=== PATIENT | female | born 1945 | race Caucasian/White ===

== ENCOUNTER 2017-09-23 18:54 | Emergency (ER) | payer OTHER, BC ==
[2017-09-23 19:13] VITALS: TEMP 98; BMI 21.9
--- NOTE | 2017-09-23 19:55 | PDOC ---
Attending Attestation - Resident Resident Name: Singh Resendez - ED Attending Attestation I have performed the following: I have examined & evaluated the patient, The case was reviewed & discussed with the resident, I agree w/resident's findings & plan - HPI HPI: 09/23/17 20:12 Pt comes with uncontrolled BP. She has been missing doses of irbesartan on and off. Last night systolic was 200s and she took 50mg (2 pills) of her HCTZ. Pt States that the BP came down. Now she comes in with BP in the 200s again. - Physicial Exam PE: 09/23/17 20:15 Agree with resident exam. Pt's heart sounds normal, lungs are clear. Abd soft NT ND. 09/24/17 06:18 Pt is afebrile; O2 is 100% - Medical Decision Making 09/23/17 20:15 She receievd 2 SLNTG and the BP went down immediately to 133 systolic. Pt has a HR of 90s. We will give her 25mg metoprolol and check labs for end organ damage. EKG is normal CXR is clear Pt has no complaint of CP, only generalized weakness. SHe also has no PRADO at this time. Once results are back we will discuss with TYRONE Tejeda. 09/24/17 04:51 Dr. Tejeda is not component technician and not calling back. 09/24/17 06:17 Pt is feeling better and wants to go home. She understands that she can return with her . 09/24/17 06:18 Pt hydrated and she is feeling better Heart Score/ECG Review - Electrocardiogram EKG: Normal - Age Age: >/= 65 - Risk Factors Risk Factors Heart Score: Yes Hx Hypercholesterolemia, Yes Hx Hypertension Based on the list above the patient has:: >/=3 risk factors or Hx atherosclerotic disease - ECG Intrepretation Rhythm: Regular Rhythm - Quit[place] Quitaque: Normal - P and WA Prominent R with upright T in V1 (true posterior MA): No Delta Wave(s) Present: No WPW: No Comment:: 09/23/17 20:11 1 PVC on the EKG
[2017-09-23] MEDS ORDERED: metoPROLOL SUCCINATE 25 MG TAB.SR.24H (FP) PO ONE (20:01)
--- NOTE | 2017-09-23 20:01 | PDOC ---
History of Present Illness - General Chief Complaint: Blood Pressure Problem Stated Complaint: WEAKNESS Time Seen by Provider: 09/23/17 19:24 History Source: Patient Exam Limitations: No Limitations - History of Present Illness Initial Comments: 09/23/17 19:52 Patient is a 72F with history of HTN , HLD, and glaucoma here today complaining of weakness and high blood pressure. She states that she has been feeling generally weak for several days. She took her blood pressure yesterday at a chiropractor's office and it was 220/110. Denies fevers, chest pain, shortness of breath, nausea, vomiting. Patient states that she takes irbesartan normally for blood pressure. She states that she took 50mg of HCTZ today because her blood pressure was high. She states that she used to be on metoprolol, but that was discontinued several months ago. Denies headache, constipation, and pain with urination. Past History - Past Medical History Allergies/Adverse Reactions: Allergies Allergy/AdvReac Type Severity Reaction Status Date / Time No Known Allergies Allergy Verified 09/23/17 19:09 Home Medications: Ambulatory Orders Bimatoprost [Lumigan] 5 ml OP ASDIR #0 drops 02/27/13 Ezetimibe/Simvastatin [Vytorin 10-20 mg Tablet] 1 each PO DAILY #0 tablet Hydrochlorothiazide [Hctz -] 25 mg PO DAILY #30 tablet 02/27/13 Ranitidine [Zantac -] 150 mg PO BID #0 tablet 02/27/13 Timolol [Betimol] 10 ml OP ASDIR #0 drops 02/27/13 Valsartan [Diovan] 80 mg PO DAILY #0 tablet 02/27/13 Methylprednisolone [Medrol Dose Christiano] 4 mg PO ASDIR #21 tablet 03/07/13 Nitrofurantoin Monohyd/M-Cryst [Nitrofurantoin Oscoda-Mcr 100 mg] 100 mg PO BID # 10 capsule 09/23/17 COPD: No HTN: Yes Hypercholesterolemia: Yes Other medical history: glacoma - Suicide/Smoking/Psychosocial Hx Smoking Status: No Smoking History: Never smoked Have you smoked in the past 12 months: No Number of Cigarettes Smoked Daily: 0 Information on smoking cessation initiated: No Hx Alcohol Use: Yes Drug/Substance Use Hx: No Review of Systems - Review of Systems Comments:: 09/23/17 20:06 GENERAL/CONSTITUTIONAL: No fever. Positive for chills and weakness. HEAD, EYES, EARS, NOSE AND THROAT: No change in vision. No sore throat. CARDIOVASCULAR: No chest pain. Positive for shortness of breath RESPIRATORY: No cough, wheezing, or hemoptysis. GASTROINTESTINAL: No nausea, vomiting, diarrhea or constipation. GENITOURINARY: No dysuria, frequency, or change in urination. MUSCULOSKELETAL: No joint or muscle swelling or pain. No neck or back pain. SKIN: No rash NEUROLOGIC: No headache, vertigo, loss of consciousness, or change in strength/ sensation. ENDOCRINE: No increased thirst. No abnormal weight change HEMATOLOGIC/LYMPHATIC: No anemia, easy bleeding, or history of blood clots. ALLERGIC/IMMUNOLOGIC: No hives or skin allergy. *Physical Exam - Vital Signs Last Vital Signs Temp Pulse Resp BP Pulse Ox 98 F 72 18 216/81 100 09/23/17 19:09 09/23/17 19:09 09/23/17 19:09 09/23/17 19:09 09/23/17 19:09 - Physical Exam Comments: 09/23/17 20:07 GENERAL: Awake, alert, and fully oriented, in no acute distress HEAD: No signs of trauma, normocephalic, atraumatic EYES: PERRLA, EOMI, sclera anicteric, conjunctiva clear ENT: Auricles normal inspection, hearing grossly normal, nares patent, oropharynx clear without exudates. Dry mucosa NECK: Normal ROM, supple, no lymphadenopathy, JVD, or masses LUNGS: No distress, speaks full sentences, clear to auscultation bilaterally HEART: Regular rate and rhythm, normal S1 and S2, no murmurs, rubs or gallops, peripheral pulses normal and equal bilaterally. ABDOMEN: Soft, nontender, normoactive bowel sounds. No guarding, no rebound. No masses EXTREMITIES: Normal inspection, Normal range of motion, no edema. No clubbing or cyanosis. NEUROLOGICAL: Cranial nerves II through XII grossly intact. Normal speech, no focal sensorimotor deficits SKIN: Warm, Dry, normal turgor, no rashes or lesions noted. ED Treatment Course - LABORATORY CBC & Chemistry Diagram: 09/23/17 18:55 09/23/17 18:55 - RADIOLOGY Radiology Studies Ordered: Category Date Time Status CHEST X-RAY PORTABLE* [RAD] Stat Radiology 09/23/17 19:38 Taken Medical Decision Making - Medical Decision Making 09/23/17 20:07 Patient is 72F with history of HTN, HLD, and glaucoma here today with weakness and hypertension. Vital signs notable for systolic BP>200. Will give 25 metoprolol. Suspect medication non-compliance. Will perform labs and EKG to look for end organ damage. Will reassess. EKG shows normal sinus rhythm with rate of 69. No st elevations/depression. No significant t-wave abnormalities. One PVC. CXR shows no acute cardiopulmonary process. 09/23/17 21:31 Laboratory Tests 09/23/17 09/23/17 09/23/17 18:55 18:55 18:55 WBC 8.4 Hgb 13.6 Hct 38.3 Plt Count 259 INR 1.01 Sodium 132 L Potassium 3.4 L Chloride 97 L Creatinine 0.7 Random Glucose 130 H Magnesium 1.6 L Ur Leukocyte Esterase Urine WBC (Auto) 09/23/17 20:00 WBC Hgb Hct Plt Count INR Sodium Potassium Chloride Creatinine Random Glucose Magnesium Ur Leukocyte Esterase Trace Urine WBC (Auto) 15 CBC normal, CMP reassuring. Given 1L fluids and taking PO. Repleting mag and K. UA shows UTI. No CVA tenderness. Patient reports feeling better, but still weaker than normal. Will treat with nitrofuratoin. 09/23/17 21:53 BP 165/74, will discharge after completion of magnesium. *DC/Admit/Observation/Transfer Diagnosis at time of Disposition: UTI (urinary tract infection) - Discharge Dispostion Disposition: HOME Condition at time of disposition: Good - Prescriptions Prescriptions: Nitrofurantoin Monohyd/M-Cryst [Nitrofurantoin Oscoda-Mcr 100 mg] 100 mg PO BID # 10 capsule - Referrals Referrals: Abdon Tejeda MD [Primary Care Provider] - - Patient Instructions Printed Discharge Instructions: DI for High Blood Pressure, DI for Urinary Tract Infection (UTI) Additional Instructions: You were seen today in the ED and found to have high blood pressure and a UTI. You were prescribed an antibiotic, please take your next dose tomorrow morning and complete the prescription even if you feel better. Please return if you have any new, worsening or concerning symptoms. - Post Discharge Activity
[2017-09-23 20:02] LABS: BASO % 0.7 % (0-2.0); EOS % 0.3 % (0-4.5); HEMATOCRIT 38.3 % (32.4-45.2); HEMOGLOBIN 13.6 GM/dL (10.7-15.3); LYMPH % 25.2 % (8-40); MCH 33.7 pg (25.7-33.7); MCHC 35.6 g/dl (32.0-36.0); MEAN CELL VOLUME 94.9 fl (80-96); MEAN PLT VOLUME 7.3 fl (7.5-11.1); MONO % 6.8 % (3.8-10.2); PLATELET COUNT 259 K/MM3 (134-434); RBC 4.04 M/mm3 (3.60-5.2); WHITE BLOOD COUNT 8.4 K/mm3 (4.0-10.0)
[2017-09-23] MEDS ORDERED: METOPROLOL TARTRATE 25 MG TABLET (FP) ONE (20:02)
[2017-09-23] MEDS ORDERED: NITROGLYCERIN SUBLINGUAL 1/150 0.4 MG TAB SL ONE (20:10)
[2017-09-23 20:20] LABS: INR 1.01 (0.82-1.09); PROTHROMBIN TIME (PATIENT) 11.4 SEC (9.7-13.0)
[2017-09-23 20:26] LABS: ANION GAP 12 (8-16); BLOOD UREA NITROGEN 13 mg/dL (7-18); CALCIUM 8.6 mg/dL (8.5-10.1); CHLORIDE 97 mmol/L (98-107); CO2 23 mmol/L (21-32); CREATININE 0.7 mg/dL (0.55-1.02); GLUCOSE,RANDOM 130 mg/dL (74-106); MAGNESIUM 1.6 mg/dL (1.8-2.4); POTASSIUM 3.4 mmol/L (3.5-5.1); SGOT/AST 15 U/L (15-37); SGPT/ALT 14 U/L (12-78); SODIUM 132 mmol/L (136-145)
[2017-09-23 20:27] LABS: URINE APPEARANCE CLEAR; URINE BILIRUBIN NEGATIVE (<2.0 mg/dL); URINE COLOR STRAW; URINE GLUCOSE (UA) NEGATIVE (NEGATIVE); URINE KETONE TRACE (NEGATIVE); URINE LEUK ESTERASE TRACE (NEGATIVE); URINE NITRITE NEGATIVE (NEGATIVE); URINE PROTEIN NEGATIVE (NEGATIVE); URINE UROBILINOGEN NEGATIVE mg/dL (0.2-1.0)
[2017-09-23 20:30] LABS: ALK PHOS 58 U/L (45-117); BILIRUBIN,TOTAL 0.5 mg/dL (0.2-1.0)
[2017-09-23] MEDS ORDERED: POTASSIUM CHLORIDE TABS 20 MEQ TABLET.ER (FP) PO ONE ×2 (21:04→21:18)
[2017-09-23] MEDS ORDERED: MAGNESIUM SULF 50% (8.12 MEQ/2 ML-1 GM VIAL) IVPB ONE (21:04)
[2017-09-23] MEDS ORDERED: MAGNESIUM SULF 50% (8.12 MEQ/2 ML-1 GM VIAL) ONE (21:17)
[2017-09-23 21:20] LABS: EPI CELLS RARE /HPF (FEW)
[2017-09-23] MEDS ORDERED: NITROFURANTOIN MACROCRYSTAL 50 MG CAPSULE (FP) PO SCH (21:45)
[2017-09-23] MEDS ORDERED: NITROFURANTOIN MACROCRYSTAL 50 MG CAPSULE (FP) ONE (21:49)
[2017-09-23 21:55] VITALS: BP 165/74; PULSE 55
--- NOTE | 2017-09-24 09:21 | EKG ---
Test Reason : Blood Pressure : / mmHG Vent. Rate : 069 BPM Atrial Rate : 069 BPM P-R Int : 128 ms QRS Dur : 078 ms QT Int : 394 ms P-R-T Axes : 051 008 041 degrees QTc Int : 422 ms SINUS RHYTHM WITH OCCASIONAL PREMATURE VENTRICULAR COMPLEXES MINIMAL VOLTAGE CRITERIA FOR LVH, MAY BE NORMAL VARIANT BORDERLINE ECG WHEN COMPARED WITH ECG OF 07-MAR-2013 00:12, PREMATURE VENTRICULAR COMPLEXES ARE NOW PRESENT Confirmed by EVELIO MARTIN, DOROTHY ([id number]) on 09/24/2017 9:21:06 AM Referred By: Confirmed By:DOROTHY FRASER MD
== END 2017-09-23 22:34 | disposition home or self-care (01) ==
LOC: JER 18:54
PROC: 3E033GC Introduction of Other Therapeutic Substance into Peripheral Vein, Percutaneous Approach (ICD-10-PCS; principal; 2017-09-23)
DX: N39.0 Urinary tract infection, site not specified (principal); I10 Essential (primary) hypertension; E87.6 Hypokalemia; E83.42 Hypomagnesemia
CPT/HCPCS: 36415; 71045-TC-FY; 80053; 81003; 81015; 82550; 83735; 84484; 85025; 85610; 87086; 93005; 93010; 96374; 99285-25

== ENCOUNTER 2017-09-27 11:41 | Observation (INO) | payer OTHER, BC ==
[2017-09-27 12:01] VITALS: BMI 21.9
--- NOTE | 2017-09-27 12:13 | PDOC ---
History of Present Illness - General Chief Complaint: Weakness Stated Complaint: LETHARGIC, DIZZINESS Time Seen by Provider: 09/27/17 12:09 - History of Present Illness Initial Comments: patient is a 72F with history of HTN , HLD, and glaucoma, who presents to the emergency department complaining of chronic fatigue, markedly worse over the last month. Pt states that she began experiencing chronic fatigue after her last glaucoma surgery in 2016. Pt states that she recently travel to [place] in Mid-August and noted her chronic fatigue was markedly worse after the trip. Pt states she feels depleted throughout the day, endorses frequent chills and occasional palpitations in the last few days. Pt denies any change in PO intake or loss of appetite. States she has lost 16lbs over the last 6 years. Pt most recent colonoscopy was May of this year. Fam hx significant for mother with Graves Dz. No recent sick contacts, bug bites, rashes. Pt recently in ED on for similar symptoms with BP in 200s systolic, treated with metoprolol 25mg and discharged after resolution of symptoms. Patient denies chest pain, shortness of breath, headache or dizziness. Denies fever, nausea, vomiting, diarrhea and constipation. Denies dysuria, frequency, urgency and hematuria. Allergies: None Past surgical history: BL Glaucoma surgery Social History: Denies smoking, drug use. Glass of wine with dinner PMD: Dr. Danis Tejeda 09/27/17 12:10 Past History - Past Medical History Allergies/Adverse Reactions: Allergies Allergy/AdvReac Type Severity Reaction Status Date / Time LEE Inhibitors Allergy Verified 09/27/17 12:01 Home Medications: Ambulatory Orders Hydrochlorothiazide [Hctz -] 25 mg PO DAILY PRN 09/27/17 Irbesartan [Avapro] 300 mg PO DAILY 09/27/17 COPD: No HTN: Yes Hypercholesterolemia: Yes - Suicide/Smoking/Psychosocial Hx Smoking Status: No Smoking History: Never smoked Have you smoked in the past 12 months: No Number of Cigarettes Smoked Daily: 0 Hx Alcohol Use: Yes (one glass of wine a day) Drug/Substance Use Hx: No Substance Use Type: Alcohol Review of Systems - Review of Systems Comments:: GENERAL/CONSTITUTIONAL: Persistent fatigue, chills. No fever. HEAD, EYES, EARS, NOSE AND THROAT: No change in vision. No ear pain or discharge. No sore throat. CARDIOVASCULAR: Occasional palpitations. No chest pain or shortness of breath RESPIRATORY: No cough, wheezing, or hemoptysis. GASTROINTESTINAL: No nausea, vomiting, diarrhea or constipation. GENITOURINARY: No dysuria, frequency, or change in urination. MUSCULOSKELETAL: No joint or muscle swelling or pain. No neck or back pain. SKIN: No rash NEUROLOGIC: No headache, vertigo, loss of consciousness, or change in strength/ sensation. ENDOCRINE: No increased thirst. No abnormal weight change HEMATOLOGIC/LYMPHATIC: No anemia, easy bleeding, or history of blood clots. ALLERGIC/IMMUNOLOGIC: No hives or skin allergy. 09/27/17 12:10 *Physical Exam - Vital Signs Last Vital Signs Temp Pulse Resp BP Pulse Ox 97.6 F 67 16 204/89 99 09/27/17 11:56 09/27/17 11:56 09/27/17 11:56 09/27/17 11:56 09/27/17 11:56 - Physical Exam Comments: GENERAL: Elderly woman, Awake, alert, and fully oriented, in no acute distress HEAD: No signs of trauma, normocephalic, atraumatic EYES: PERRLA, EOMI, sclera anicteric, conjunctiva clear ENT: Auricles normal inspection, hearing grossly normal, nares patent, oropharynx clear without exudates. Moist mucosa NECK: Normal ROM, supple, no lymphadenopathy, JVD, or masses LUNGS: No distress, speaks full sentences, clear to auscultation bilaterally HEART: Regular rate and rhythm, normal S1 and S2, no murmurs, rubs or gallops, peripheral pulses normal and equal bilaterally. ABDOMEN: R trace renal bruit appreciable. Soft, nontender, normoactive bowel sounds. No guarding, no rebound. No masses EXTREMITIES : Trace pedal edema BL. Normal inspection, Normal range of motion. No clubbing or cyanosis. NEUROLOGICAL: Cranial nerves II through XII grossly intact. Normal speech, normal gait, no focal sensorimotor deficits SKIN: Warm, Dry, normal turgor, no rashes or lesions noted 09/27/17 12:10 ED Treatment Course - LABORATORY CBC & Chemistry Diagram: 09/27/17 13:44 09/27/17 13:44 Medical Decision Making - Medical Decision Making patient is a 72F with history of HTN , HLD, and glaucoma, who presents to the emergency department complaining of chronic fatigue, markedly worse over the last month. Vitals notable for BP 200s/80s systolic. Ddx included malignant hypertension, anemia, hypothyroidism, adrenal insufficiency, metabolic derangement, neoplasm, infection. Will send CBC, CMP, TSH, ESR, folate, vitamin b12, CXR, EKG, UA. Consider renal U/S for evaluation of hx of JANUSZ. 09/27/17 13:11 Pt complaining of SOB. Placed on O2, Pulse Ox ordered. Satting 100% with HR 70. Cardiac/pulm exam unremarkable. Pt seen by IMPORT/EXPORT CLERK of Dr. Bazzi. Will be admitted for Dr. Tejeda. 09/27/17 14:44 09/27/17 15:[address] Bazzi. Spoke with IMPORT/EXPORT CLERK, confirmed admission. *DC/Admit/Observation/Transfer Diagnosis at time of Disposition: Hypertension, Chronic fatigue - Discharge Dispostion Condition at time of disposition: Guarded Decision to Admit order: Yes - Referrals Referrals: Abdon Tejeda MD [Primary Care Provider] - 1 week - Patient Instructions - Post Discharge Activity
--- NOTE | 2017-09-27 13:22 | PDOC ---
Attending Attestation - HPI HPI: 09/27/17 14:10 The patient is a 72 year old female with a significant past medical history of hypertension, glaucoma, and hyperlipidemia who presents to the emergency department for evaluation of generalized weakness. The patient reports a 5 day history of increasing fatigue. The patient reports she has noticed increasing weakness since her glaucoma surgery in 2016 and after her recent trip to [place] in August. She reports associated symptoms of chills and palpitations. Of note, the patient was seen in emergency department on 09/23 for similar symptoms. The patient reports she was prompted by her PCP to visit the emergency department for full work up of hypertension and chronic fatigue. The patient denies chest pain, shortness of breath, headache, and dizziness. Denies fevers, nausea, vomiting, diarrhea, and constipation. Denies dysuria, frequency, urgency, and hematuria. Denies loss of appetite and sick contact. Allergies: LEE Inhibitors Family History: Mother: Graves disease. Past surgical history: Glaucoma surgery (02/2017). Colonoscopy (05/2017) Social history: Reported alcohol consumption (Glass of wine with dinner) No reported cigarette or drug use. PCP: Dr. Danis Tejeda ([phone]) - Physicial Exam PE: Vitals: Triage Vital signs reviewed General Appearance: (+)Weak. Head: Atraumatic, normocephalic Eyes: Pupils equal reactive round, extraocular movement intact Nose: Nares patent bilaterally Neck: Supple;No Nuchal rigidity Chest Wall: Nontender Cardiac: Regular rate and rhythm, no murmurs, no rubs, no gallops, Lungs: Clear to auscultation bilateral, good air movement bilaterally, Abdomen: Soft, nondistended, normal bowel sounds, nontender to palpation Rectal: Exam deferred Extremities: Full range of motion to all extremities, no cyanosis, clubbing, or edema Skin: Warm and dry, no rashes or lesions, no petechiae Neuro: Cranial Nerves 2-12 grossly c intact, Strength intact to all extremities , Sensation intact to all extremities Psych: normal mood, normal affect - Medical Decision Making The patient is a 72 year old female with a significant past medical history of hypertension, glaucoma, and hyperlipidemia who presents to the emergency department for evaluation of generalized weakness. Plan: Labs Chest x-ray ECG Renal artery ultrasound TSH folate Vitamin b-12 ESR <Geno Becerra - Last Filed: 09/27/17 14:10> - Resident Resident Name: Bay Johnstonua - ED Attending Attestation I have performed the following: I have examined & evaluated the patient, The case was reviewed & discussed with the resident, I agree w/resident's findings & plan, Exceptions are as noted - Medical Decision Making Patient sent in for admission for evaluation of uncontrolled hypertension and fatigue. Medical workup initiated. Hydralazine ordered for blood pressure. Medicine team to provide remainder of care <Nuno Hinton - Last Filed: 09/27/17 17:31> Attestations - Attestations Documentation prepared by Geno Becerra, acting as medical social worker for Nuno Hinton MD. <Geno Becerra - Last Filed: 09/27/17 14:10>
[2017-09-27 13:55] LABS: BASO % 0.5 % (0-2.0); EOS % 0.7 % (0-4.5); HEMOGLOBIN 14.6 GM/dL (10.7-15.3); LYMPH % 26.9 % (8-40); MCH 32.6 pg (25.7-33.7); MCHC 34.6 g/dl (32.0-36.0); MEAN CELL VOLUME 94.1 fl (80-96); MEAN PLT VOLUME 7.5 fl (7.5-11.1); MONO % 6.2 % (3.8-10.2); NEUT % 65.7 % (42.8-82.8); PLATELET COUNT 301 K/MM3 (134-434); RBC 4.47 M/mm3 (3.60-5.2); WHITE BLOOD COUNT 8.3 K/mm3 (4.0-10.0)
[2017-09-27 14:08] LABS: URINE APPEARANCE CLEAR; URINE BILIRUBIN NEGATIVE (<2.0 mg/dL); URINE COLOR STRAW; URINE GLUCOSE (UA) NEGATIVE (NEGATIVE); URINE KETONE NEGATIVE (NEGATIVE); URINE NITRITE NEGATIVE (NEGATIVE); URINE PROTEIN NEGATIVE (NEGATIVE); URINE UROBILINOGEN NEGATIVE mg/dL (0.2-1.0)
[2017-09-27 14:14] LABS: URINE LEUK ESTERASE 1+ (NEGATIVE)
[2017-09-27 14:16] LABS: EPI CELLS RARE /HPF (FEW)
[2017-09-27 14:21] LABS: ANION GAP 9 (8-16); BILIRUBIN,TOTAL 0.5 mg/dL (0.2-1.0); BLOOD UREA NITROGEN 13 mg/dL (7-18); CALCIUM 9.2 mg/dL (8.5-10.1); CHLORIDE 98 mmol/L (98-107); CO2 25 mmol/L (21-32); CREATININE 0.7 mg/dL (0.55-1.02); GLUCOSE,RANDOM 88 mg/dL (74-106); POTASSIUM 4.2 mmol/L (3.5-5.1); SGOT/AST 12 U/L (15-37); SGPT/ALT 11 U/L (12-78); SODIUM 132 mmol/L (136-145); TOT PROT 7.2 g/dl (6.4-8.2)
[2017-09-27 14:30] LABS: ALK PHOS 70 U/L (45-117)
[2017-09-27] MEDS ORDERED: hydrALAZINE HCL 20 MG/ML VIAL IM ONE (14:40)
[2017-09-27] MEDS ORDERED: ALPRAZolam 0.25 MG TABLET PO ONE (14:41)
[2017-09-27] MEDS ORDERED: hydrALAZINE HCL 20 MG/ML VIAL IVPUSH ONE (14:43)
[2017-09-27] MEDS ORDERED: hydrALAZINE HCL 20 MG/ML VIAL ONE (14:45)
[2017-09-27] MEDS ORDERED: ALPRAZolam 0.25 MG TABLET ONE (14:45)
[2017-09-27] MEDS ORDERED: SODIUM CHLORIDE 1,000 ML IV SCH (15:30)
--- NOTE | 2017-09-27 15:38 | HP ---
Admitting History and Physical - Primary Care Physician PCP: Abdon Tejeda - Admission Chief Complaint: fatigue History of Present Illness: is a 72 year old female with pmh of HTN, glaucoma, hld, anxiety/ panic attacks who presents with worsening weakness/fatigue over the last 5 days. She was seen in ED on Tuesday for similar symptoms, sent home on po antibiotics. Pt reports no relief since Tuesday and feels as she is feeling worse. She reports sweats/chills and feeling hot/cold. She also reports hyperpigmentation spots on her legs. BP when checked at home was 200s/100s. She reports episodes of fatigue since 06/2016 but never as bad as right now. She reports due to fatigue, she hasn't been able to ambulate and perform ADLs at home like before. She was at her PCP office today and was sent over for further evaluation. She reports she has been eating and drinking adequately at home. No changes in sleep, feels she is actually sleeping more now. Weight loss of 15 lbs over the last 5 years. She denies any chest pain, n/v/d, rash, fever, unilateral weakness, changes in speech/swallowing, recent travel, sick contacts. Upon my interaction in ED, she reports acute sob, O2sat 100%, 2L O2 Via NC placed History Source: Patient, Significant Other Limitations to Obtaining History: No Limitations - Past Medical History Cardiovascular: Yes: HTN, Hyperlipdemia Psych: Yes: Anxiety, Panic - Past Surgical History Additional Past Surgical History: Right Lumpectomy- over 30 years ago Glaucoma surgery-02/2017 Colonoscopy- 05/2017 - Smoking History Smoking history: Never smoked Have you smoked in the past 12 months: No Aproximately how many cigarettes per day: 0 - Alcohol/Substance Use Hx Alcohol Use: Yes (one glass of wine a day) History of Substance Use: reports: None - Social History Usual Living Arrangement: Yes: With Spouse History of Recent Travel: No Home Medications - Allergies Allergies/Adverse Reactions: Allergies Allergy/AdvReac Type Severity Reaction Status Date / Time LEE Inhibitors Allergy Severe Difficulty Verified 09/27/17 15:41 Breathing amlodipine Allergy Verified 09/27/17 15:41 - Home Medications Home Medications: Ambulatory Orders Hydrochlorothiazide [Hctz -] 25 mg PO DAILY PRN 09/27/17 Irbesartan [Avapro] 300 mg PO DAILY 09/27/17 Family Disease History - Family Disease History Family Disease History: Heart Disease: Father (stroke, chf), Other: Mother ( graves disease ) Review of Systems Findings/Remarks: as per hpi Physical Examination Vital Signs: Vital Signs Temperature 97.6 F 09/27/17 11:56 Pulse Rate 55 L 09/27/17 15:14 Respiratory Rate 22 09/27/17 14:42 Blood Pressure 167/64 09/27/17 15:14 O2 Sat by Pulse Oximetry (%) 100 09/27/17 14:42 Constitutional: Yes: Anxious Eyes: Yes: WNL HENT: Yes: WNL Neck: Yes: WNL Cardiovascular: Yes: WNL, Regular Rate and Rhythm. No: Bruit, Murmur Respiratory: Yes: WNL, Regular, CTA Bilaterally, On Nasal O2 (improving), SOB. No: Accessory Muscle Use, Rales, Tachypnea, Wheezes Gastrointestinal: Yes: WNL, Normal Bowel Sounds, Soft. No: Distention, Tenderness Renal/: Yes: WNL Extremities: Yes: Other (diffuse macular hyperpigmentation of LE's, b/l bruit femoral) Edema: No Neurological: Yes: Alert, Oriented Psychiatric: Yes: WNL, Alert, Oriented Labs: CBC, BMP 09/27/17 13:44 09/27/17 13:44 Imaging - Results Chest X-ray: Pending Cat Scan: Pending (Head CT) Ultrasound: Pending (Renal US) Problem List - Problems (1) Acute hyponatremia Assessment/Plan: Mild, +fatigue hold hctz NS 42mL/hr ordered regular diet monitor bmp Code(s): E87.1 - HYPO-OSMOLALITY AND HYPONATREMIA (2) Hypertensive urgency Assessment/Plan: BP>200s/100s, +fatigue, b/l fem bruit auscultated upon palp, denies other symptoms anaphylactic reaction to LEE-I allergy/intolerance to Amlodipine- pt unable to report what happened improved with iv hydralazine renal ultrasound ordered head CT ordered- r/o ich/aute pathology continue irbesartan hydralazine 10mg po bid added will monitor Code(s): I16.0 - HYPERTENSIVE URGENCY (3) Hypertension Assessment/Plan: plan as above Code(s): I10 - ESSENTIAL (PRIMARY) HYPERTENSION (4) Fatigue Assessment/Plan: worsening fatigue x 5 days, +shivering hyperpigmentation of LE's, although would be hypotensive in adrenal insufficiency, considering hyperpig, will ordered AM cortisol level labs unremarkable, tsh wnl, esr wnl hepatitis panel ordered chest xray pending PT ordered Code(s): R53.83 - OTHER FATIGUE (5) Anxiety Assessment/Plan: stable, history of panic attacks xanax prn Code(s): F41.9 - ANXIETY DISORDER, UNSPECIFIED (6) Femoral bruit Assessment/Plan: b/l femoral bruits auscultated renal US ordered Code(s): R09.89 - OTH SYMPTOMS AND SIGNS INVOLVING THE CIRC AND RESP SYSTEMS (7) HLD (hyperlipidemia) Assessment/Plan: controlled off meds Code(s): E78.5 - HYPERLIPIDEMIA, UNSPECIFIED (8) History of glaucoma Assessment/Plan: s/p glaucoma surgery 06/2016 Code(s): Z86.69 - PERSONAL HISTORY OF DIS OF THE NERVOUS SYS AND SENSE ORGANS
--- NOTE | 2017-09-27 17:07 | EKG ---
Test Reason : Blood Pressure : / mmHG Vent. Rate : 062 BPM Atrial Rate : 062 BPM P-R Int : 162 ms QRS Dur : 084 ms QT Int : 410 ms P-R-T Axes : 055 -10 035 degrees QTc Int : 416 ms NORMAL SINUS RHYTHM MODERATE VOLTAGE CRITERIA FOR LVH, MAY BE NORMAL VARIANT BORDERLINE ECG Confirmed by MD JESUSITA, LUPE ([id number]) on 09/27/2017 5:07:12 PM Referred By: Confirmed By:LUPE MC MD
[2017-09-27] MEDS: hydrALAZINE HCL 10 MG TABLET PO SCH (21:26)
[2017-09-27] MEDS: ALPRAZolam 0.25 MG TABLET PO PRN (21:27)
[2017-09-28 07:33] LABS: BASO % 0.9 % (0-2.0); EOS % 1.2 % (0-4.5); HEMATOCRIT 37.6 % (32.4-45.2); HEMOGLOBIN 13.3 GM/dL (10.7-15.3); LYMPH % 32.4 % (8-40); MCH 33.7 pg (25.7-33.7); MCHC 35.2 g/dl (32.0-36.0); MEAN CELL VOLUME 95.7 fl (80-96); MEAN PLT VOLUME 7.5 fl (7.5-11.1); MONO % 6.7 % (3.8-10.2); NEUT % 58.8 % (42.8-82.8); PLATELET COUNT 268 K/MM3 (134-434); RBC 3.93 M/mm3 (3.60-5.2); RDW 12.9 % (11.6-15.6); WHITE BLOOD COUNT 6.2 K/mm3 (4.0-10.0)
[2017-09-28 07:48] LABS: CHLORIDE 107 mmol/L (98-107); POTASSIUM 4.4 mmol/L (3.5-5.1); SODIUM 139 mmol/L (136-145)
[2017-09-28 07:53] LABS: ANION GAP 7 (8-16); BLOOD UREA NITROGEN 15 mg/dL (7-18); CALCIUM 8.5 mg/dL (8.5-10.1); CO2 25 mmol/L (21-32); CREATININE 0.7 mg/dL (0.55-1.02); GLUCOSE,RANDOM 86 mg/dL (74-106); MAGNESIUM 2.1 mg/dL (1.8-2.4); PHOSPHOROUS 3.7 mg/dL (2.5-4.9)
--- NOTE | 2017-09-28 10:17 | PN ---
Progress Note, Physician Chief Complaint: Pt lying in bed in no acute distress. she reports she felt more weaker and shivers just now today after she got up before. Denies chest pain, sob, n/v/d, dizziness, lightheadedness. - Current Medication List Current Medications: Active Medications Alprazolam (Xanax -) 0.25 mg PO Q6H PRN PRN Reason: ANXIETY Last Admin: 09/27/17 21:27 Dose: 0.25 mg Hydralazine HCl (Apresoline -) 10 mg PO BID DELMER Last Admin: 09/27/17 21:26 Dose: 10 mg Losartan Potassium (Cozaar -) 100 mg PO DAILY [facility] - Objective Vital Signs: Vital Signs Temperature 97.5 F L 09/28/17 06:14 Pulse Rate 68 09/28/17 06:14 Respiratory Rate 18 09/28/17 06:14 Blood Pressure 149/76 09/28/17 06:14 O2 Sat by Pulse Oximetry (%) 98 09/28/17 00:10 Constitutional: Yes: No Distress, Anxious, Thin Cardiovascular: Yes: WNL, Regular Rate and Rhythm. No: Gallop, Murmur Respiratory: Yes: WNL, Regular, CTA Bilaterally. No: Accessory Muscle Use, SOB , Tachypnea, Wheezes Gastrointestinal: Yes: Normal Bowel Sounds, Soft, Other (abd bruit). No: Distention, Tenderness Genitourinary: Yes: WNL Extremities: Yes: Other (b/l femoral bruit) Edema: No Neurological: Yes: WNL, Alert, Oriented Psychiatric: Yes: WNL, Alert, Oriented Labs: CBC, BMP 09/28/17 06:00 09/28/17 06:00 - ....Imaging Chest X-ray: Report Reviewed Cat Scan: Report Reviewed Ultrasound: Report Reviewed Problem List - Problems (1) Acute hyponatremia Code(s): E87.1 - HYPO-OSMOLALITY AND HYPONATREMIA (2) Hypertensive urgency Code(s): I16.0 - HYPERTENSIVE URGENCY (3) Hypertension Code(s): I10 - ESSENTIAL (PRIMARY) HYPERTENSION (4) Fatigue Code(s): R53.83 - OTHER FATIGUE (5) Anxiety Code(s): F41.9 - ANXIETY DISORDER, UNSPECIFIED (6) Femoral bruit Code(s): R09.89 - OTH SYMPTOMS AND SIGNS INVOLVING THE CIRC AND RESP SYSTEMS (7) HLD (hyperlipidemia) Code(s): E78.5 - HYPERLIPIDEMIA, UNSPECIFIED (8) History of glaucoma Code(s): Z86.69 - PERSONAL HISTORY OF DIS OF THE NERVOUS SYS AND SENSE ORGANS Assessment/Plan (1) Acute hyponatremia Assessment/Plan: resolved ivf d/c'd Code(s): E87.1 - HYPO-OSMOLALITY AND HYPONATREMIA (2) Hypertensive urgency Assessment/Plan: improved, BP 140s/70s renal us/head ct unremarkable renal artery duplex ordered to r/o stenosis continue irbesartan hydralazine 10mg po bid cardiology consult appreciated orthostatics ordered will monitor Code(s): I16.0 - HYPERTENSIVE URGENCY (3) Hypertension Assessment/Plan: plan as above Code(s): I10 - ESSENTIAL (PRIMARY) HYPERTENSION (4) Fatigue Assessment/Plan: unchanged, episode of worsening generalized weakness this am labs unremarkable, tsh wnl, esr wnl cardiac echo pending am cortisol pending hepatitis panel pending PT pending Code(s): R53.83 - OTHER FATIGUE (5) Anxiety Assessment/Plan: stable, history of panic attacks xanax prn Code(s): F41.9 - ANXIETY DISORDER, UNSPECIFIED (6) Femoral bruit Assessment/Plan: b/l femoral bruits auscultated duplex to r/o renal artery stenosis Code(s): R09.89 - OTH SYMPTOMS AND SIGNS INVOLVING THE CIRC AND RESP SYSTEMS (7) HLD (hyperlipidemia) Assessment/Plan: controlled off meds Code(s): E78.5 - HYPERLIPIDEMIA, UNSPECIFIED (8) History of glaucoma Assessment/Plan: s/p glaucoma surgery 06/2016 Code(s): Z86.69 - PERSONAL HISTORY OF DIS OF THE NERVOUS SYS AND SENSE ORGANS
[2017-09-28] MEDS: LOSARTAN POTASSIUM 50 MG TABLET (FP) PO SCH (10:28)
[2017-09-28] MEDS: hydrALAZINE HCL 10 MG TABLET PO SCH (10:28)
[2017-09-28] MEDS ORDERED: PT OWN MED DRAWER 7, Y5N ONE (10:50)
--- NOTE | 2017-09-28 10:51 | CON.CARD ---
Cardiology Consult (text) - Consultation Consultation Note: cc: fatigue hpi: 72 f hx htn,hld, here with general weakness/fatigue. For months pt has been having these sxs. Last few days has been worse so came to er. No cp, sob , palps, dizzy, loc, pnd, orthopnea, le edema. No hx hrt dz. pmh: per hpi psh: eye surgery social: no tob fam: no premature cad, scd ros: per hpi; no nvd, fever, gib, hematuria, dysuria, vision changes meds: Home Medications Medication Instructions Recorded Hydrochlorothiazide [Hctz -] 25 mg PO DAILY PRN 09/27/17 Irbesartan [Avapro] 300 mg PO DAILY 09/27/17 pe: Vital Signs Period Temp Pulse Resp BP Sys/Hampton Pulse Ox Last 24 Hr 96.9 F-98.8 F 55-87 16-22 120-204/64-96 98-100 nad no jvd rrr s1s2 no mrg cta bl nl eff aaox3 no le e/c/c abd nt nd pos bs no jaundice diaphoresis pos dp pt Laboratory Last Values WBC 6.2 K/mm3 (4.0-10.0) 09/28/17 06:00 RBC 3.93 M/mm3 (3.60-5.2) 09/28/17 06:00 Hgb 13.3 GM/dL (10.7-15.3) 09/28/17 06:00 Hct 37.6 % (32.4-45.2) 09/28/17 06:00 MCV 95.7 fl (80-96) 09/28/17 06:00 MCH 33.7 pg (25.7-33.7) 09/28/17 06:00 MCHC 35.2 g/dl (32.0-36.0) 09/28/17 06:00 RDW 12.9 % (11.6-15.6) 09/28/17 06:00 Plt Count 268 K/MM3 (134-434) 09/28/17 06:00 MPV 7.5 fl (7.5-11.1) 09/28/17 06:00 Neutrophils % 58.8 % (42.8-82.8) 09/28/17 06:00 Lymphocytes % 32.4 % (8-40) D 09/28/17 06:00 Monocytes % 6.7 % (3.8-10.2) 09/28/17 06:00 Eosinophils % 1.2 % (0-4.5) 09/28/17 06:00 Basophils % 0.9 % (0-2.0) 09/28/17 06:00 ESR 7 mm/hr (0-30) 09/27/17 13:44 Sodium 139 mmol/L (136-145) 09/28/17 06:00 Potassium 4.4 mmol/L (3.5-5.1) 09/28/17 06:00 Chloride 107 mmol/L (98-107) 09/28/17 06:00 Carbon Dioxide 25 mmol/L (21-32) 09/28/17 06:00 Anion Gap 7 (8-16) L 09/28/17 06:00 BUN 15 mg/dL (7-18) 09/28/17 06:00 Creatinine 0.7 mg/dL (0.55-1.02) 09/28/17 06:00 Creat Clearance w eGFR > 60 (>60) 09/27/17 13:44 Random Glucose 86 mg/dL (74-106) 09/28/17 06:00 Calcium 8.5 mg/dL (8.5-10.1) 09/28/17 06:00 Phosphorus 3.7 mg/dL (2.5-4.9) 09/28/17 06:00 Magnesium 2.1 mg/dL (1.8-2.4) 09/28/17 06:00 Total Bilirubin 0.5 mg/dL (0.2-1.0) 09/27/17 13:44 AST 12 U/L (15-37) L 09/27/17 13:44 ALT 11 U/L (12-78) L 09/27/17 13:44 Alkaline Phosphatase 70 U/L (45-117) 09/27/17 13:44 Troponin I < 0.02 ng/ml (0.00-0.05) 09/27/17 13:44 Total Protein 7.2 g/dl (6.4-8.2) 09/27/17 13:44 Albumin 4.0 g/dl (3.4-5.0) 09/27/17 13:44 TSH 1.82 uIU/ml (0.358-3.74) 09/27/17 13:44 Urine Color Straw 09/27/17 13:44 Urine Appearance Clear 09/27/17 13:44 Urine pH 7.0 (5.0-8.0) 09/27/17 13:44 Ur Specific Ross 1.003 (1.001-1.035) 09/27/17 13:44 Urine Protein Negative (NEGATIVE) 09/27/17 13:44 Urine Glucose (UA) Negative (NEGATIVE) 09/27/17 13:44 Urine Ketones Negative (NEGATIVE) 09/27/17 13:44 Urine Blood Negative (NEGATIVE) 09/27/17 13:44 Urine Nitrite Negative (NEGATIVE) 09/27/17 13:44 Urine Bilirubin Negative (<2.0 mg/dL) 09/27/17 13:44 Urine Urobilinogen Negative mg/dL (0.2-1.0) 09/27/17 13:44 Ur Leukocyte Esterase 1+ (NEGATIVE) H 09/27/17 13:44 Urine WBC (Auto) 1 /hpf (3-5) 09/27/17 13:44 Urine RBC (Auto) <1 /hpf (0-3) 09/27/17 13:44 Ur Epithelial Cells Rare /HPF (FEW) 09/27/17 13:44 cxr: clear lungs ecg: sr, nl intervals, no ischemic changes a/p: 72 f hx htn,hld, here with general weakness/fatigue. fatigue/weakness: - no obvious cardiac etiology - will check echo - check orthostatic vs htn: -elevated initially, better now -pt has numerous med intolerances -cont arb, hydralazine -check renal duplex to r/o JANUSZ hld: -stable
[2017-09-28] MEDS ORDERED: hydrALAZINE HCL 10 MG TABLET PO ONE ×2 (16:30→18:45)
[2017-09-28] MEDS: ALPRAZolam 0.25 MG TABLET PO PRN ×2 (18:03→23:34)
[2017-09-29 07:13] LABS: BASO % 0.8 % (0-2.0); EOS % 1.6 % (0-4.5); HEMATOCRIT 37.6 % (32.4-45.2); HEMOGLOBIN 13.1 GM/dL (10.7-15.3); LYMPH % 29.5 % (8-40); MCH 33.6 pg (25.7-33.7); MCHC 34.9 g/dl (32.0-36.0); MEAN CELL VOLUME 96.3 fl (80-96); MEAN PLT VOLUME 7.6 fl (7.5-11.1); MONO % 7.4 % (3.8-10.2); NEUT % 60.7 % (42.8-82.8); PLATELET COUNT 272 K/MM3 (134-434); RBC 3.91 M/mm3 (3.60-5.2); RDW 12.7 % (11.6-15.6)
[2017-09-29 07:35] LABS: ANION GAP 5 (8-16); BLOOD UREA NITROGEN 10 mg/dL (7-18); CALCIUM 8.5 mg/dL (8.5-10.1); CHLORIDE 106 mmol/L (98-107); CO2 27 mmol/L (21-32); CREATININE 0.7 mg/dL (0.55-1.02); GLUCOSE,RANDOM 86 mg/dL (74-106); POTASSIUM 3.9 mmol/L (3.5-5.1); SODIUM 138 mmol/L (136-145)
[2017-09-29] MEDS: LOSARTAN POTASSIUM 50 MG TABLET (FP) PO SCH (09:29)
[2017-09-29] MEDS: hydrALAZINE HCL 10 MG TABLET PO SCH (09:29)
[2017-09-29] MEDS ORDERED: hydrALAZINE HCL 10 MG TABLET PO SCH (10:00)
--- NOTE | 2017-09-29 10:11 | CONSULT ---
Consult - text type - Consultation Consultation Note: Neurology History of Present Illness 72F with history of HTN , HLD, and glaucoma, who presents to the emergency department complaining of chronic fatigue, markedly worse over the last month but reports dating back to Jun 2016 when she had glaucoma surgery. She questions if eye drops and medications may have caused it. She states she feels episodes of being acutely weak but then may also be fatigued throughout the day. She completed CT head which showed some ectopia of the tonsils and possible Chiari I but no acute changes. Do not believe this would cause her to have weakness now. Exam did not show atrophy or signs of a neuromuscular condition. She has lost 16lbs over the last 6 years. B12, folate, TSH all normal. Does not have typical features of fibromyalgia but this is a possibility. Past History - Past Medical History Allergies/Adverse Reactions: Allergies Allergy/AdvReac Type Severity Reaction Status Date / Time LEE Inhibitors Allergy Verified 09/27/17 12:01 Home Medications: Ambulatory Orders Hydrochlorothiazide [Hctz -] 25 mg PO DAILY PRN 09/27/17 Irbesartan [Avapro] 300 mg PO DAILY 09/27/17 COPD: No HTN: Yes Hypercholesterolemia: Yes - Suicide/Smoking/Psychosocial Hx Smoking Status: No Smoking History: Never smoked Have you smoked in the past 12 months: No Number of Cigarettes Smoked Daily: 0 Hx Alcohol Use: Yes (one glass of wine a day) Drug/Substance Use Hx: No Substance Use Type: Alcohol Review of Systems GENERAL/CONSTITUTIONAL: Persistent fatigue, chills. No fever. HEAD, EYES, EARS, NOSE AND THROAT: No change in vision. No ear pain or discharge. No sore throat. CARDIOVASCULAR: Occasional palpitations. No chest pain or shortness of breath RESPIRATORY: No cough, wheezing, or hemoptysis. GASTROINTESTINAL: No nausea, vomiting, diarrhea or constipation. GENITOURINARY: No dysuria, frequency, or change in urination. MUSCULOSKELETAL: No joint or muscle swelling or pain. No neck or back pain. SKIN: No rash NEUROLOGIC: No headache, vertigo, loss of consciousness, or change in strength/ sensation. ENDOCRINE: No increased thirst. No abnormal weight change HEMATOLOGIC/LYMPHATIC: No anemia, easy bleeding, or history of blood clots. ALLERGIC/IMMUNOLOGIC: No hives or skin allergy. *Physical Exam Vital Signs Temperature 97.5 F L 09/29/17 06:00 Pulse Rate 64 09/29/17 06:00 Respiratory Rate 18 09/29/17 03:00 Blood Pressure 152/76 09/29/17 06:00 O2 Sat by Pulse Oximetry (%) 98 09/29/17 00:00 GENERAL: Elderly woman, Awake, alert, and fully oriented, in no acute distress HEAD: No signs of trauma, normocephalic, atraumatic EYES: PERRLA, EOMI, sclera anicteric, conjunctiva clear ENT: Auricles normal inspection, hearing grossly normal, nares patent, oropharynx clear without exudates. Moist mucosa NECK: Normal ROM, supple, no lymphadenopathy, JVD, or masses LUNGS: No distress, speaks full sentences, clear to auscultation bilaterally HEART: Regular rate and rhythm, normal S1 and S2, no murmurs, rubs or gallops, peripheral pulses normal and equal bilaterally. ABDOMEN: R trace renal bruit appreciable. Soft, nontender, normoactive bowel sounds. No guarding, no rebound. No masses EXTREMITIES : Trace pedal edema BL. Normal inspection, Normal range of motion. No clubbing or cyanosis. NEUROLOGICAL: Cranial nerves II through XII grossly intact. Normal speech, no focal sensorimotor deficits, strenght 5/5, no atrophy, no fascilulations, gait deferred SKIN: Warm, Dry, normal turgor, no rashes or lesions noted CBCD WBC 7.0 K/mm3 (4.0-10.0) 09/29/17 06:00 RBC 3.91 M/mm3 (3.60-5.2) 09/29/17 06:00 Hgb 13.1 GM/dL (10.7-15.3) 09/29/17 06:00 Hct 37.6 % (32.4-45.2) 09/29/17 06:00 MCV 96.3 fl (80-96) H 09/29/17 06:00 MCHC 34.9 g/dl (32.0-36.0) 09/29/17 06:00 RDW 12.7 % (11.6-15.6) 09/29/17 06:00 Plt Count 272 K/MM3 (134-434) 09/29/17 06:00 MPV 7.6 fl (7.5-11.1) 09/29/17 06:00 CMP Sodium 138 mmol/L (136-145) 09/29/17 06:00 Potassium 3.9 mmol/L (3.5-5.1) 09/29/17 06:00 Chloride 106 mmol/L (98-107) 09/29/17 06:00 Carbon Dioxide 27 mmol/L (21-32) 09/29/17 06:00 Anion Gap 5 (8-16) L 09/29/17 06:00 BUN 10 mg/dL (7-18) 09/29/17 06:00 Creatinine 0.7 mg/dL (0.55-1.02) 09/29/17 06:00 Creat Clearance w eGFR > 60 (>60) 09/27/17 13:44 Calcium 8.5 mg/dL (8.5-10.1) 09/29/17 06:00 Total Bilirubin 0.5 mg/dL (0.2-1.0) 09/27/17 13:44 AST 12 U/L (15-37) L 09/27/17 13:44 ALT 11 U/L (12-78) L 09/27/17 13:44 Alkaline Phosphatase 70 U/L (45-117) 09/27/17 13:44 Total Protein 7.2 g/dl (6.4-8.2) 09/27/17 13:44 Albumin 4.0 g/dl (3.4-5.0) 09/27/17 13:44 CT head reviewed Echo reviewed Medical Decision Making 72F with history of HTN , HLD, and glaucoma, who presents to the emergency department complaining of chronic fatigue, markedly worse over the last month but reports dating back to Jun 2016 when she had glaucoma surgery. She questions if eye drops and medications may have caused it. She states she feels episodes of being acutely weak but then may also be fatigued throughout the day. She completed CT head which showed some ectopia of the tonsils and possible Chiari I but no acute changes. Do not believe this would cause her to have weakness now. Exam did not show atrophy or signs of a neuromuscular condition. She has lost 16lbs over the last 6 years. B12, folate, TSH all normal. Does not have typical features of fibromyalgia but this is a possibility. ?Chronic Fatigue syndrome? Metabolic/electrolytes appear normal. Do not have clear etiology but happy to have outpatient followup continue to monitor. Patient in agreement.
--- NOTE | 2017-09-29 11:49 | PN ---
Progress Note (short form) - Note Progress Note: s: no cp palps dizzy sob o: Vital Signs Period Temp Pulse Resp BP Sys/[place]pton Pulse Ox Last 24 Hr 97.5 F-99.2 F 64-102 18-20 139-190/65-103 98-989 nad no jvd rrr s1s2 no mrg cta bl nl eff aaox3 no le e/c/c abd nt nd pos bs no jaundice diaphoresis Current Medications Generic Name Dose Route Start Last Admin Trade Name Freq PRN Reason Stop Dose Admin Alprazolam 0.25 mg 09/27/17 15:25 09/28/17 23:34 Xanax - PO 0.25 mg Q6H PRN Administration ANXIETY Hydralazine HCl 20 mg 09/29/17 10:00 09/29/17 10:06 Apresoline - PO 10 mg BID DELMER Administration Losartan Potassium 100 mg 09/28/17 10:00 09/29/17 09:29 Cozaar - PO 100 mg DAILY DELMER Administration CBC, BMP 09/29/17 06:00 09/29/17 06:00 cxr: clear lungs ecg: sr, nl intervals, no ischemic changes echo 09/2017: nl lv/rv, mild tr, nl rvsp a/p: 72 f hx htn,hld, here with general weakness/fatigue. fatigue/weakness: - no obvious cardiac etiology - echo unremarkable - check orthostatic vs htn: -pt has numerous med intolerances -cont arb, hydralazine, will increase to 20 bid for better control -check renal duplex to r/o JANUSZ hld: -stable
--- NOTE | 2017-09-29 13:30 | DS ---
Physical Examination Vital Signs: Vital Signs Temperature 97.8 F 09/29/17 09:00 Pulse Rate 70 09/29/17 10:00 Respiratory Rate 18 09/29/17 09:00 Blood Pressure 189/82 09/29/17 10:00 O2 Sat by Pulse Oximetry (%) 989 H 09/29/17 08:00 Constitutional: Yes: Well Nourished, No Distress, Calm Cardiovascular: Yes: WNL, Regular Rate and Rhythm, Other (b/l femoral bruits). No: Murmur Respiratory: Yes: WNL, Regular, CTA Bilaterally. No: Accessory Muscle Use, Tachypnea, Wheezes Gastrointestinal: Yes: Normal Bowel Sounds, Soft, Other (abd bruit). No: Distention, Tenderness Renal/: Yes: WNL Edema: No Neurological: Yes: WNL, Alert, Oriented ...Motor Strength: WNL Psychiatric: Yes: WNL, Alert, Oriented Labs: CBC, BMP 09/29/17 06:00 09/29/17 06:00 Discharge Summary Reason For Visit: CHRONIC FATIGUE,HYPERTENSION Current Active Problems Acute hyponatremia (Acute) Anxiety (Acute) Chronic fatigue (Acute) Fatigue (Acute) Femoral bruit (Acute) HLD (hyperlipidemia) (Acute) History of glaucoma (Acute) Hypertension (Acute) Hypertensive urgency (Acute) Hospital Course: is a 76 year old female who came in for increased fatigue/weakness. All work up neg. Pt evaluated by neuro, cardiology. Hydralazine added for adequate bp control. Catecholamines plasma levels pending, can be f/u outpt. B/ l femoral/abd bruits were auscultated, renal us neg. renal duplex was not performed as the radiologist refused as it is outpt workup. Otherwise, pt without significant change. Ambulated 200ft w/ PT. Pt is medically stable to be discharged home. Advise further outpt work up about her chronic fatigue. Condition: Fair - Instructions Diet, Activity, Other Instructions: resume prev activity, diet hydralazine added to adequately control bp, hold if BP <100/60 f/u with PCP in 1 week, will need to check renal duplex outpt f/u with other specialists as directed Referrals: Nuno Hannah MD [Staff Physician] - 1 Week Kelechi Houston MD [Staff Physician] - 1 Week Abdon Tejeda MD [Primary Care Provider] - 1 week Disposition: HOME - Home Medications Comprehensive Discharge Medication List: Ambulatory Orders Irbesartan [Avapro] 300 mg PO DAILY 09/27/17 Alprazolam [Xanax] 0.25 mg PO Q6H PRN tablet MDD 3mg 09/29/17 hydrALAZINE HCL [Apresoline -] 20 mg PO BID 30 Days #60 tablet 09/29/17
[2017-09-29 14:56] VITALS: BP 150/68; PULSE 73; TEMP 98.4
[2017-09-30 00:07] LABS: HEP.C VIRUS AB 0.1 s/co ratio (0.0-0.9)
== END 2017-09-29 15:12 | disposition home or self-care (01) ==
LOC: JER 11:41 → JERBED 15:12 → J7W 16:55
PROVIDERS: ADMIT Internal Medicine; ATTEND Internal Medicine
PROC: 3E033GC Introduction of Other Therapeutic Substance into Peripheral Vein, Percutaneous Approach (ICD-10-PCS; principal; 2017-09-27)
PROC: 3E0337Z Introduction of Electrolytic and Water Balance Substance into Peripheral Vein, Percutaneous Approach (ICD-10-PCS; 2017-09-27)
DX: R53.82 Chronic fatigue, unspecified (principal); I16.0 Hypertensive urgency; I10 Essential (primary) hypertension; E78.5 Hyperlipidemia, unspecified; E87.1 Hypo-osmolality and hyponatremia; F41.9 Anxiety disorder, unspecified; R09.89 Other specified symptoms and signs involving the circulatory and respiratory systems; Z86.69 Personal history of other diseases of the nervous system and sense organs
CPT/HCPCS: 36415; 70450-TC; 71045-TC-FY; 76775-TC; 80048; 80053; 80074; 81003; 81015; 82384; 82533; 82607; 82746; 83735; 84100; 84443; 84484; 85025; 85651; 87086; 93005; 93010; 93306-TC; 96374; 97116-GP; 97161-GP; 99285-25; G0378; J7030

== ENCOUNTER 2020-12-18 04:46 | Day surgery (SDC) | payer OTHER, BC ==
[2020-12-17 12:48] VITALS: BMI 19.3
[2020-12-18 11:20] VITALS: TEMP 98
[2020-12-18 13:56] VITALS: BP 149/62; PULSE 66
== END 2020-12-18 14:11 | disposition home or self-care (01) ==
LOC: JASU-ENDO 04:46
PROVIDERS: ATTEND Internal Medicine Gastroenterology
PROC: 0DBP8ZX Excision of Rectum, Via Natural or Artificial Opening Endoscopic, Diagnostic (ICD-10-PCS; principal; 2020-12-18 12:15)
DX: Z12.11 Encounter for screening for malignant neoplasm of colon (principal); Z86.010 Personal history of colon polyps; K63.89 Other specified diseases of intestine; K62.1 Rectal polyp
CPT/HCPCS: 88305-TC